=== PATIENT | female | born 1990 | race Caucasian/White ===

== ENCOUNTER → 2016-08-04 | Outpatient (CLI) | payer OTHER ==
--- NOTE | 2016-08-04 19:12 | US ---
EXAMINATION TYPE: US OB <= 14 wk fetus DATE OF EXAM: 08/04/2016 6:39 PM COMPARISON: NONE CLINICAL HISTORY: Z36 Confirm dates viability. ; LMP~April 2016 EXAM PERFORMED: Transabdominal (TA) EXAM MEASUREMENTS: GESTATIONAL AGE / DATING Physician Established: not established Dates by LMP: unsure Dates by First Scan: today Dates by Current Scan for: (12 weeks/0 days) EDC: 02/16/2017 MATERNAL ANATOMY Uterus: 13.9 x 9.0 x 8.0cm Right Ovary: 3.2 x 3.2 x 1.5cm Left Ovary: 2.6 x 1.8 x 1.2cm Post CDS / Adnexa: wnl Presence of free fluid: no Presence of corpus luteal cyst: not identified Presence of subchorionic bleed: inferior to gestational sac is anechoic area = 0.7 x 2.3 x 1.4cm GESTATION / SURVEY CRL: 5.3cm (12 weeks/0 days) Yolk Sac (normal less than 6mm): not seen Heart Rate: 154 bpm Rhythm: IUP: Viable IUP Date of LMP: unknown Beta HcG (if available): NA Single, live, IUP,12 weeks/0 days, EDC: 02/16/2017; HR 154bpm. IMPRESSION: The ultrasound gestational age is 12 weeks. I see no complicating process.
== END | disposition home or self-care (01) ==
LOC: RADUSMAIN 17:40
PROVIDERS: ATTEND Obstetrics & Gynecology
DX: Z36 Encounter for antenatal screening of mother (principal); Z3A.12 12 weeks gestation of pregnancy
CPT/HCPCS: 76801

== ENCOUNTER → 2016-12-10 | Outpatient (CLI) | payer OTHER ==
[2016-12-10 11:29] LABS: CH 26.5; HDW 3.78; Hypochromasia Slight; MCHC 33.4 g/dL (31.0-37.0); MCV 80.9 fL (80.0-100.0); Mean Platelet Volume 8.6; Poikilocytosis Slight; RDW 14.9 % (11.5-15.5); WBC 6.3 k/uL (3.8-10.6)
== END | disposition home or self-care (01) ==
LOC: LABWHC1 10:13
PROVIDERS: ATTEND Obstetrics & Gynecology
DX: Z34.82 Encounter for supervision of other normal pregnancy, second trimester (principal)
CPT/HCPCS: 36415; 82950; 85027

== ENCOUNTER → 2020-02-28 | Outpatient (CLI) | payer OTHER ==
--- NOTE | 2020-02-29 11:29 | US ---
EXAMINATION TYPE: Transabdominal DATE OF EXAM: 02/28/2020 4:41 PM COMPARISON: NONE CLINICAL HISTORY: Z36 confirm dates. EXAM PERFORMED: Transabdominal (TA) EXAM MEASUREMENTS: GESTATIONAL AGE / DATING Physician Established: Not yet established Dates by LMP: LMP unknown Dates by First Scan: No previous this is first scan Dates by Current Scan for: (11 weeks/5 days) EDC: 09/14/19 MATERNAL ANATOMY Uterus: 12.8 x 7.6 x 8.7cm Right Ovary: 2.8 x 1.9 x 1.9cm Left Ovary: 2.2 x 1.0 x 1.2cm Post CDS / Adnexa: wnl Presence of free fluid: no GESTATION / SURVEY CRL: 5.0cm (11 weeks/ 5 days) Yolk Sac (normal less than 6mm): not visualized Heart Rate: 167 bpm Rhythm: Normal IUP: Viable IUP Date of LMP: unknown IMPRESSION: 1. Single intrauterine gestation estimated at 11 weeks 5 days gestation based on crown-rump length. C ardiac activity measures 167 bpm was observed during the study.
== END | disposition home or self-care (01) ==
LOC: RADUSWWP 16:22
PROVIDERS: ATTEND Obstetrics & Gynecology
DX: Z36.9 Encounter for antenatal screening, unspecified (principal); Z3A.11 11 weeks gestation of pregnancy
CPT/HCPCS: 76801

== ENCOUNTER 2020-08-29 11:00 | Outpatient (CLI) | payer OTHER ==
--- NOTE | 2020-08-29 12:37 | US ---
EXAMINATION TYPE: US OB >= 14 wk fetus DATE OF EXAM: 08/29/2020 COMPARISON: None CLINICAL HISTORY: abnormal placenta/ grade 3 grade 3 placenta TECHNIQUE: Transabdominal (TA) GESTATIONAL AGE / DATING Physician Established: (37 weeks/6 days) EDC: 09/13/20 Dates by LMP: LMP unknown Dates by First Scan: (37 weeks/6 days) EDC: 09/13/20 Dates by Current Scan: (38 weeks/2 days) EDC: 09/10/20 SURVEY IUP: Single PLACENTA: Fundal/posterior - appears grade 3 PREVIA: No Previa ZACH: 11.0cm cm Normal CERVICAL LENGTH (transabdominal: norm > 3.0cm): 3.1 cm BIOMETRY PRESENTATION: Vertex LIE: Longitudinal BPD: 9.2 cm 37 weeks / 4 days HC: 33.4 cm 38 weeks / 2 days AC: 35.1 cm 39 weeks / 1 days FL: 7.5 cm 38 weeks / 1 days ESTIMATED WEIGHT IN GRAMS: 3524 grams ESTIMATED WEIGHT IN LBS/OZ: 7 lbs. 12 oz. WEIGHT PERCENTAGE BASED ON ESTABLISHED DATES: 78% HC/AC: 0.95 Normal FL/AC: 21% Normal HEART RATE: 167 bpm RHYTHM: Normal IMPRESSION: Single viable uterine
[2020-08-29 13:04] VITALS: BP 137/92; PULSE 101; RESP 16; TEMP 97.6
== END 2020-08-29 12:45 | disposition home or self-care (01) ==
LOC: FBPOP 11:00
PROVIDERS: ATTEND Obstetrics & Gynecology
DX: O43.109 Malformation of placenta, unspecified, unspecified trimester (principal); Z3A.38 38 weeks gestation of pregnancy
CPT/HCPCS: 59025; 76805

== ENCOUNTER → 2020-09-02 | Outpatient (CLI) | payer OTHER | DX: Z53.9 Procedure and treatment not carried out, unspecified reason (principal) ==

== ENCOUNTER 2020-09-05 13:30 | Outpatient (CLI) | payer OTHER | END 2020-09-05 14:36 | disposition home or self-care (01) | LOC: FBPOP 13:30 | PROVIDERS: ATTEND Obstetrics & Gynecology | DX: O98.513 Other viral diseases complicating pregnancy, third trimester (principal); U07.1 COVID-19; Z3A.38 38 weeks gestation of pregnancy | CPT/HCPCS: 59025 ==

== ENCOUNTER 2020-09-08 10:36 | Outpatient (CLI) | payer OTHER ==
[2020-09-08 11:34] VITALS: BP 120/81; PULSE 88; RESP 15; TEMP 96.2
--- NOTE | 2020-09-25 08:15 | P.MSEPDOC ---
Presenting Problems - Arrival Data Date of Arrival on Unit: 09/08/20 Time of Arrival on Unit: 10:38 Mode of Transport: Wheelchair - Complaint OB-Reason for Admission/Chief Complaint: NST Medical History - Information : 7 Para: 5 Term: 5 : 0 Abortions: Spontaneous or Elective: 1 Number of Living Children: 5 - Gestational Age Gestational Age by SELENA (wks/days): 39 Weeks and 2 Days Review of Systems - Review of Systems Constitutional: No problems Breast: No problems ENT: No problems Cardiovascular: No problems Respiratory: No problems Gastrointestinal: No problems Genitourinary: No problems Musculoskeletal: No problems Neurological: No problems Skin: No problems Vital Signs - Temperature Temperature: 96.2 F Temperature Source: Temporal Artery Scan - Pulse Pulse Oximetery Pulse Rate: 88 Pulse Assessment Method: Pulse Oximetry - Respirations Respiratory Rate: 15 Oxygen Delivery Method: Room Air O2 Sat by Pulse Oximetry: 97 - Blood Pressure Right Arm Blood Pressure: 120/81 Blood Pressure Mean: 94 Blood Pressure Source: Automatic Cuff Medical Screen Scoring (Pre) - Cervical Exam Dilation: Exam Deferred Effacement: Exam Deferred Membranes: Intact - Uterine Contractions Frequency: N/A Duration: N/A Intensity: N/A - Maternal Vital Signs Maternal Temperature: N/A Maternal Blood Pressure: N/A Signs of Preeclampsia: N/A Maternal Respirations: N/A - Maternal Trauma Maternal Trauma: N/A - Assessment - Baby A Baseline FHR: 130 Heart Rate - NICHD Category: Category I (Normal) = 0 NST: Reactive Position: N/A Station: N/A - Total Score - Baby A Total Score - Baby A: 0 - Total Score - Baby B Total Score - Baby B: 0 - Total Score - Baby C Total Score - Baby C: 0 - Level of Risk - Baby A Level of Risk - Baby A: Low (0-5) - Level of Risk - Baby B Level of Risk - Baby B: Low (0-5) - Level of Risk - Baby C Level of Risk - Baby C: Low (0-5) Physician Notification (Pre) - Physician Notified Physician Notified Date: 09/08/20 Physician Notified Time: 11:23 New Order Received: Yes Disposition - Disposition OB Disposition: Discharge to home Discharge Date: 09/08/20 Discharge Time: 11:30 I agree with the RN Medical Screening Exam: Yes Case reviewed; plan agreed upon as documented in EMR&OBIX.: Yes Diagnosis: OTHER MALFORMATION OF PLACENTA, THIRD TRIMESTER
== END 2020-09-08 11:30 | disposition home or self-care (01) ==
LOC: FBPOP 10:36
PROVIDERS: ATTEND Obstetrics & Gynecology
DX: O43.193 Other malformation of placenta, third trimester (principal); Z3A.39 39 weeks gestation of pregnancy
CPT/HCPCS: 59025; G0463; 99213

== ENCOUNTER 2020-09-09 09:54 | Outpatient (CLI) | payer OTHER ==
[2020-09-09] MEDS ORDERED: ONDANSETRON 4 MG/2 ML VIAL IVP STA (10:13)
[2020-09-09] MEDS ORDERED: SODIUM CHLORIDE 0.9% 1,000 ML IV ONE (10:13)
[2020-09-09] MEDS ORDERED: DEXTROSE 5%-0.9% NACL 1,000 ML IV SCH (11:15)
[2020-09-09 11:34] LABS: Amorphous Sediment,Urine Rare /hpf; Appearance,Urine Cloudy (Clear); Bacteria,Urine Occasional /hpf; Bilirubin,Urine 1+ (Negative); Blood,Urine Negative (Negative); Color,Urine Dark Brown; Glucose,Urine (UA) Negative (Negative); Granular Casts,Urine 6 /lpf (0); Hyaline Casts,Urine 6 /lpf (0-2); Ketones,Urine 1+ (Negative); Leukocyte Esterase,Urine Large (Negative); Mucus,Urine Many /hpf; Nitrite,Urine Negative (Negative); PH, Urine 6.5 (5.0-8.0); Protein,Urine 2+ (Negative); RBC,Urine 3 /hpf (0-5); Specific Gravity,Urine 1.037 (1.001-1.035); Squamous Epithelial Cell,Urine 29 /hpf (0-4); Urobilinogen,Urine >12.0 mg/dL (<2.0); WBC,Urine 55 /hpf (0-5)
[2020-09-09 11:43] LABS: Amphetamine Screen,Urine Not Detected (NotDetected); Barbiturate Screen,Urine Not Detected (NotDetected); Benzodiazepines Screen,Urine Not Detected (NotDetected); Cocaine Screen,Urine Not Detected (NotDetected); Methadone Screen, Urine Not Detected (NotDetected); Opiate Screen,Urine Not Detected (NotDetected); Oxycodone Screen, Urine Not Detected (NotDetected); Phencyclidine Screen,Urine Not Detected (NotDetected); Tricyclic Antidepressant,Urine Not Detected (NotDetected); Urn Cannabinoid Scrn Not Detected (NotDetected)
[2020-09-09 12:33] VITALS: BP 121/74; PULSE 112; RESP 16; TEMP 97
--- NOTE | 2020-09-25 08:10 | P.MSEPDOC ---
Presenting Problems - Arrival Data Date of Arrival on Unit: 09/09/20 Time of Arrival on Unit: 10:00 Mode of Transport: Wheelchair - Complaint OB-Reason for Admission/Chief Complaint: Acute Nausea/Vomiting Medical History - Information : 7 Para: 5 Term: 5 : 0 Abortions: Spontaneous or Elective: 1 Number of Living Children: 5 - Gestational Age Gestational Age by SELENA (wks/days): 39 Weeks and 3 Days Review of Systems - Review of Systems Constitutional: No problems Breast: No problems ENT: No problems Cardiovascular: No problems Respiratory: No problems Gastrointestinal: No problems Genitourinary: No problems Musculoskeletal: No problems Neurological: No problems Skin: No problems Vital Signs - Temperature Temperature: 97.0 F - Pulse Right Sitting Brachial Pulse Rate: 112 Pulse Assessment Method: Automatic Cuff - Respirations Respiratory Rate: 16 Oxygen Delivery Method: Room Air - Blood Pressure Right Arm Sitting Blood Pressure: 121/74 Blood Pressure Mean: 89 Blood Pressure Source: Automatic Cuff Medical Screen Scoring (Pre) - Cervical Exam Dilation: Exam Deferred Effacement: Exam Deferred Membranes: Intact - Uterine Contractions Frequency: N/A Duration: N/A Intensity: N/A - Maternal Vital Signs Maternal Temperature: N/A Maternal Blood Pressure: N/A Signs of Preeclampsia: N/A Maternal Respirations: N/A - Maternal Trauma Maternal Trauma: N/A - Assessment - Baby A Baseline FHR: 120 Heart Rate - NICHD Category: Category I (Normal) = 0 NST: Reactive Position: N/A Station: N/A - Total Score - Baby A Total Score - Baby A: 0 - Total Score - Baby B Total Score - Baby B: 0 - Total Score - Baby C Total Score - Baby C: 0 - Level of Risk - Baby A Level of Risk - Baby A: Low (0-5) - Level of Risk - Baby B Level of Risk - Baby B: Low (0-5) - Level of Risk - Baby C Level of Risk - Baby C: Low (0-5) Physician Notification (Pre) - Physician Notified Physician Notified Date: 09/09/20 Physician Notified Time: 10:00 New Order Received: Yes - Notification Comment Comment: iv fluids, zofran, ua, drug screen. Disposition - Disposition OB Disposition: Discharge to home Discharge Date: 09/09/20 Discharge Time: 12:06 I agree with the RN Medical Screening Exam: Yes Case reviewed; plan agreed upon as documented in EMR&OBIX.: Yes Diagnosis: LATE VOMITING OF
== END 2020-09-09 12:06 | disposition home or self-care (01) ==
LOC: FBPOP 09:54
PROVIDERS: ATTEND Obstetrics & Gynecology
DX: O21.2 Late vomiting of pregnancy (principal); Z3A.39 39 weeks gestation of pregnancy
CPT/HCPCS: 59025; 96361; 96365; 96375; 81001; 80306; G0463; J2405; 96374; 99214

== ENCOUNTER 2020-09-10 18:33 | Inpatient (IN) | payer OTHER ==
[2020-09-10] MEDS ORDERED: TERBUTALINE 1 MG/ML VIAL SQ PRN (18:50)
[2020-09-10] MEDS ORDERED: LIDOCAINE 0.5% (PF) 5 MG/ML (50 ML SDV) SQ PRN (18:50)
[2020-09-10] MEDS ORDERED: CARBOPROST TROMETHAMINE 250 MCG/ML 1 ML AMP IM PRN (18:50)
[2020-09-10] MEDS ORDERED: OXYTOCIN 10 UNIT/ML 1 ML VIAL IM PRN (18:50)
[2020-09-10] MEDS ORDERED: METHYLERGONOVINE 0.2 MG/ML 1 ML AMP IM PRN (18:50)
[2020-09-10] MEDS: LACTATED RINGERS 1,000 ML IV SCH ×2 (19:00→19:41)
[2020-09-10 19:21] LABS: Basophils % (A) 0 %; Eosinophils # (A) 0.1 k/uL (0-0.7); Eosinophils % (A) 1 %; HCT 36.8 % (34.0-46.0); HGB 12.5 gm/dL (11.4-16.0); Hypochromasia Slight; Lymphocytes # (A) 1.4 k/uL (1.0-4.8); Lymphocytes % (A) 14 %; MCH 26.6 pg (25.0-35.0); MCHC 33.8 g/dL (31.0-37.0); MCV 78.8 fL (80.0-100.0); Mean Platelet Volume 9.3; Monocytes # (A) 0.4 k/uL (0-1.0); Monocytes % (A) 4 %; Neutrophils # (A) 7.4 k/uL (1.3-7.7); Neutrophils % (A) 79 %; Platelet Count 358 k/uL (150-450); Poikilocytosis Slight; RBC 4.67 m/uL (3.80-5.40); RDW 15.8 % (11.5-15.5); WBC 9.3 k/uL (3.8-10.6)
[2020-09-10] MEDS ORDERED: SODIUM CHLORIDE 0.9% 100 ML BAG ONE (19:47)
[2020-09-10] MEDS ORDERED: ROPIVACAINE 5MG/ML 20ML VIAL ONE (19:47)
[2020-09-10] MEDS ORDERED: fentaNYL (PF) 50 MCG/ML 5 ML AMP ONE (19:47)
--- NOTE | 2020-09-10 19:52 | P.HPOB ---
History of Present Illness H&P Date: 09/10/20 Chief Complaint: Contractions. This patient is a 29-year-old 7 para 5 female estimated date of confinement 09/12/2020 estimated gestational age 39-5/7 weeks who presents to labor and delivery with complaints of contractions. It was here twice this weekend with similar complaints and found not to be in labor. Patient denies leaking fluid. Patient's cervix is now 6 cm dilated and thought to be in active labor. care is per Dr. Paz. care appears to be complicated by a borderline low ZACH at 35 weeks. Patient also apparently had COVID last month. Review of Systems Genitourinary: Reports Menstruation: Reports amenorrhea Past Medical History Past Medical History: Asthma Additional Past Medical History / Comment(s): childhood asthma. Patient is had 5 previous vaginal deliveries. History of Any Multi-Drug Resistant Organisms: None Reported Past Surgical History: No Surgical Hx Reported Additional Past Surgical History / Comment(s): d&c Past Anesthesia/Blood Transfusion Reactions: No Reported Reaction Past Psychological History: No Psychological Hx Reported Smoking Status: Former smoker Past Alcohol Use History: None Reported Past Drug Use History: None Reported - Past Family History Father Family Medical History: No Reported History Medications and Allergies Home Medications Medication Instructions Recorded Confirmed Type Acetaminophen Oral Susp [Tylenol] 160 mg PO Q4-6H 09/02/20 09/10/20 History Allergies Allergy/AdvReac Type Severity Reaction Status Date / Time No Known Allergies Allergy Verified 09/10/20 18:49 Exam Vital Signs Temp Pulse Resp BP Pulse Ox 09/10/20 18:48 97.6 F 103 H 16 136/78 96 Intake and Output 09/10/20 09/10/20 09/10/20 06:59 14:59 22:59 Other: Weight 92.986 kg - OBG Physical Exam Abdomen: bowel sounds normal, no diffuse tenderness, no bruit present, no guarding noted, no hepatomegaly, no splenomegaly, no mass Vulva: both: normal Vagina: normal moisture, no discharge Cervix: no lesion (Cervix is 6-7 cm dilated 80% effaced vertex. Artificial rupture membranes shows thick meconium fluid), no discharge Uterus: enlarged Results blood work shows she is O positive, rubella immune, RPR is nonreactive, hepatitis B was negative, group B strep was negative Result Diagrams: 09/10/20 19:00 Abnormal Lab Results - Last 24 Hours (Table) 09/10/20 Range/Units 19:00 MCV 78.8 L (80.0-100.0) fL RDW 15.8 H (11.5-15.5) % Assessment and Plan Assessment: This is a 29-year-old 7 para 5 female 39-5/7 weeks' gestation admitted to labor and delivery in active labor. Patient also has thick meconium-stained amniotic fluid. heart tones are category 1. Plan at this time is to allow epidurals the patient wishes. Anticipate vaginal delivery. We'll have the anesthesia present for delivery secondary to the thickness meconium-stained fluid. (1) 39 weeks gestation of Current Visit: Yes Status: Acute Code(s): Z3A.39 - 39 WEEKS GESTATION OF SNOMED Code(s): 72381502 (2) Normal labor Current Visit: Yes Status: Acute Code(s): O80 - ENCOUNTER FOR FULL-TERM UNCOMPLICATED DELIVERY; Z37.9 - OUTCOME OF DELIVERY, UNSPECIFIED SNOMED Code(s): 33130442 (3) Thick meconium stained amniotic fluid Current Visit: Yes Status: Acute Code(s): P96.83 - MECONIUM STAINING SNOMED Code(s): 834920888
[2020-09-10] MEDS: OXYTOCIN 30 UNITS/500 ML NS 30 UNIT in SALINE 1 500ML.BAG IV SCH ×2 (21:09→22:05)
[2020-09-10] MEDS ORDERED: SIMETHICONE 80 MG CHEWABLE PO PRN (21:20)
[2020-09-10] MEDS ORDERED: diphenhydrAMINE 50 MG/ML 1 ML VIAL IVP PRN (21:20)
[2020-09-10] MEDS ORDERED: ZOLPIDEM 5 MG TAB PO PRN (21:20)
[2020-09-10] MEDS ORDERED: BENZOCAINE/MENTHOL SPRAY 1 GM/SPRAY AEROSOL TOPICAL PRN (21:20)
[2020-09-10] MEDS ORDERED: IBUPROFEN 600 MG TAB PO PRN (21:20)
[2020-09-10] MEDS ORDERED: ACETAMINOPHEN TAB 325 MG TAB PO PRN (21:20)
[2020-09-10] MEDS ORDERED: LANOLIN CREAM 5 GM TUBE TOPICAL PRN (21:20)
[2020-09-10] MEDS ORDERED: bisacodyL 10 MG SUPP RECTAL PRN (21:20)
[2020-09-10] MEDS ORDERED: HYDROCORTISONE 2.5% RECTAL CREAM 30 GM TUBE RECTAL PRN (21:20)
[2020-09-10] MEDS ORDERED: diphenhydrAMINE 25 MG CAP PO PRN (21:20)
--- NOTE | 2020-09-10 21:25 | P.PROBDLV ---
Vaginal Delivery Note - . Vaginal Delivery Note: Normal spontaneous vaginal delivery viable male infant Apgars 9 and 9 delivery time is 2104 hrs. Please see dictated H&P for intimate details of this patient's admission. Brief summary this is a 29-year-old 7 para 5 female 39-4/7 weeks gestation who is admitted to labor and delivery with complaints of contractions found to be 6- 7 centimeters dilated. Patient's heart tones are category 1. Patient has artificial rupture membranes for thick meconium-stained fluid. She does request an epidural and this is placed. Patient gets good relief. Patient quickly progresses thereafter and gets to complete. Patient pushes the head to the perineum uncontrollably. Anesthesia is called for delivery. Mouth and nares are bulb suctioned. There is a nuchal cord which is easily reduced. Without any effort we have spontaneous delivery of the anterior and posterior shoulder and rest this 's body. This is a vigorous viable male Apgars 9 and 9. Infant has spontaneous respirations and good cry of note the infant is discolored green and brown from the meconium and has peeling of the skin. After delivery of the the umbilical cord is doubly clamped and cut is then handed to the nurses in attendance. The placenta is sp ontaneously delivered intact and it is meconium-stained as well. Speculum the perineum shows no laceration and no repairs required. we taken to the special care nursery for evaluation mother stable delivery room. All counts correct 3. There are no complications.
[2020-09-10 23:13] VITALS: RESP 16
[2020-09-11] MEDS ORDERED: diphenhydrAMINE ELIXIR 25 MG/10 ML CUP PO PRN (02:33)
[2020-09-11] MEDS ORDERED: ACETAMINOPHEN ORAL SUSP 160 MG/5 ML CUP PO PRN (02:33)
[2020-09-11] MEDS: IBUPROFEN ORAL SUSP 100 MG/5 ML CUP PO SCH ×3 (02:47→09:47)
[2020-09-11] MEDS ORDERED: SENNOSIDES-DOCUSATE SODIUM 1 EACH TAB PO SCH (08:00)
--- NOTE | 2020-09-11 08:24 | P.PNOBGVD ---
Subjective - Subjective Principal diagnosis: Post day 1 Interval history: Overall she is doing well. She is ambulating, voiding and tolerating her diet. She voices no complaints. Vital signs are stable and afebrile. Heart regular, lungs clear, extremities without pain. Abdomen is soft and uterus is firm. Lochia is reported light. We'll plan to continue care for now as baby is in special care nursery. Patient reports: Reports appetite normal, Reports voiding normally, Reports pain well controlled, Reports ambulating normally [place]: in NICU Objective - Latest Vital Signs Latest vital signs: Vital Signs Temp Pulse Resp BP Pulse Ox 09/11/20 04:00 98.3 F 89 16 116/70 97 09/10/20 23:22 98.3 F 95 16 132/74 09/10/20 22:52 93 16 133/85 09/10/20 22:22 88 18 127/67 09/10/20 22:07 90 14 127/82 09/10/20 21:52 90 18 124/67 09/10/20 21:37 91 14 145/84 09/10/20 21:22 97.5 F L 93 16 126/77 09/10/20 18:48 97.6 F 103 H 16 136/78 96 Intake and Output 09/10/20 09/11/20 09/11/20 22:59 06:59 14:59 Intake Total 311.733 Output Total 150 Balance 161.733 Intake: Intake, IV Titration 311.733 Amount Oxytocin 30 Units/500 ml 311.733 Ns 30 unit In Saline 1 500ml.bag @ Per Protocol IV .Q0M [facility] Rx#:[id number] Output: Estimated Blood Loss 150 Other: # Voids 0 1 Weight 92.986 kg - Exam Lungs: bilateral: normal Chest: Normal S1, Normal S2 Extremities: Present: normal Abdomen: Present: normal appearance, soft Uterus: Present: normal, firm - Labs Labs: Abnormal Lab Results - Last 24 Hours (Table) 09/10/20 Range/Units 19:00 MCV 78.8 L (80.0-100.0) fL RDW 15.8 H (11.5-15.5) %
[2020-09-11] MEDS: SENNA LEAF EXTRACT SYRUP 528 MG/15 ML CUP PO SCH ×2 (08:38→20:15)
[2020-09-11] MEDS: IBUPROFEN ORAL SUSP 2,400 MG/120 ML BOTTLE PO SCH (20:13)
[2020-09-11 23:15] VITALS: TEMP 98.2
[2020-09-12] MEDS: IBUPROFEN ORAL SUSP 2,400 MG/120 ML BOTTLE PO SCH ×2 (00:08→05:31)
--- NOTE | 2020-09-12 07:54 | P.DS ---
Providers Date of admission: 09/10/20 18:43 Expected date of discharge: 09/12/20 Attending physician: Christofer Paz Primary care physician: Stated None Hospital Course: Khadijah is doing very well day 2. She is ambulating, voiding and tolerating her diet. She voices no complaints and has no signs or symptoms from her COVID-19. We'll plan discharged home today. Her baby is still in special care nursery. Prescription for Motrin was 4 to her pharmacy. All the questions are answered for her at this time. Vital signs stable afebrile. Heart regular, lungs clear, extremities without pain. Abdomen soft and uterus is firm. Lochia is reported be light. Assessment day 2. Plan discharged home follow up with me in 6 weeks. Discharge instructions were thoroughly reviewed and all questions were answered for her prior to her discharge. Patient Condition at Discharge: Good Plan - Discharge Summary New Discharge Prescriptions: New Ibuprofen [Motrin] 600 mg PO Q6HR PRN #30 tab PRN Reason: Pain Ibuprofen [Motrin] 600 mg PO Q6HR PRN #30 tab PRN Reason: Pain No Action Acetaminophen Oral Susp [Tylenol] 160 mg PO Q4-6H Discharge Medication List Acetaminophen Oral Susp [Tylenol] 160 mg PO Q4-6H 09/02/20 [History] Ibuprofen [Motrin] 600 mg PO Q6HR PRN #30 tab 09/12/20 [Rx] Ibuprofen [Motrin] 600 mg PO Q6HR PRN #30 tab 09/12/20 [Rx] Follow up Appointment(s)/Referral(s): Christofer Paz DO [Doctor of Osteopathic Medicine] - 6 Weeks Activity/Diet/Wound Care/Special Instructions: No heavy lifting, limit stairs and driving, and pelvic rest. If any high temperatures, heavy bleeding, or severe pain call my office Discharge Disposition: HOME SELF-CARE
[2020-09-12 08:45] VITALS: BP 137/69; PULSE 87
== END 2020-09-12 09:00 | disposition home or self-care (01) | DRG 807 ==
LOC: FBPOP 18:33 → 4FBP 18:43
PROVIDERS: ADMIT Obstetrics & Gynecology; ATTEND Obstetrics & Gynecology
PROC: 10E0XZZ Delivery of Products of Conception, External Approach (ICD-10-PCS; principal; 2020-09-10)
DX: O69.81X0 Labor and delivery complicated by cord around neck, without compression, not applicable or unspecified (principal); Z37.0 Single live birth; O77.0 Labor and delivery complicated by meconium in amniotic fluid; J45.909 Unspecified asthma, uncomplicated; O99.52 Diseases of the respiratory system complicating childbirth; Z3A.39 39 weeks gestation of pregnancy; Z87.891 Personal history of nicotine dependence
CPT/HCPCS: 59025; 80306; 81001; 85025; 86850; 86900; 86901; 88307; 96361; 96365; 96375; 99213; 99214

== ENCOUNTER 2023-03-15 21:30 | Emergency (ER) | payer OTHER ==
[2023-03-15] MEDS ORDERED: SODIUM CHLORIDE 0.9% 1,000 ML IV ONE (22:20)
[2023-03-15 22:47] LABS: Basophils % (A) 0 %; Eosinophils # (A) 0.1 k/uL (0-0.7); Eosinophils % (A) 2 %; HCT 39.2 % (34.0-46.0); HGB 13.5 gm/dL (11.4-16.0); Lymphocytes # (A) 1.8 k/uL (1.0-4.8); Lymphocytes % (A) 24 %; MCH 28.3 pg (25.0-35.0); MCHC 34.5 g/dL (31.0-37.0); MCV 81.9 fL (80.0-100.0); Mean Platelet Volume 8.3; Monocytes # (A) 0.4 k/uL (0-1.0); Monocytes % (A) 5 %; Neutrophils % (A) 67 %; Platelet Count 226 k/uL (150-450); RBC 4.79 m/uL (3.80-5.40); RDW 13.5 % (11.5-15.5); WBC 7.4 k/uL (3.8-10.6)
[2023-03-15 23:11] LABS: ALT 15 U/L (4-34); AST 19 U/L (14-36); African American GFR (CKD) >90 (>60 ml/min/1.73 sqM); Albumin 4.5 g/dL (3.5-5.0); Alkaline Phosphatase 79 U/L (38-126); Anion Gap 11 mmol/L; Blood Urea Nitrogen 12 mg/dL (7-17); Calcium 9.8 mg/dL (8.4-10.2); Carbon Dioxide 22 mmol/L (22-30); Chloride 105 mmol/L (98-107); Glucose 97 mg/dL (74-99); Non-African American GFR(CKD) >90 (>60 ml/min/1.73 sqM); Potassium 3.7 mmol/L (3.5-5.1); Sodium 138 mmol/L (137-145); Total Bilirubin 0.4 mg/dL (0.2-1.3); Total Protein 7.7 g/dL (6.3-8.2)
--- NOTE | 2023-03-16 00:48 | US ---
EXAM: US , Transvaginal CLINICAL HISTORY: ITS.REASON US Reason: baginal bleeding in TECHNIQUE: Real-time transvaginal obstetrical ultrasound of the maternal pelvis and a first trimester with image documentation. Transvaginal imaging was used for better evaluation of the fetus and adnexa. COMPARISON: No previous studies. FINDINGS: Gestation: Single intrauterine gestational sac is noted. Single viable intrauterine gestation is noted corresponding to 6 weeks 1 day. Yolk sac is visualized. Probable cardiac flicker is noted. heart rate cannot be documented due to patient motion. Placenta/amniotic fluid: A 0.5 x 0.5 x 0.4 cm subchorionic bleed is noted adjacent to a gestational sac which should be closely followed. Uterus/cervix: The uterus measures 9.1 x 7.1 x 6.0 cm. No myometrial mass. Ovaries: Neither ovary is visualized. No mass. Free fluid: No free fluid. IMPRESSION: 1. Very early intrauterine gestation corresponding to 6 weeks 1 day with a yolk sac and a cardiac flicker. 2. Small subchorionic bleed is noted about the gestational sac which should be closely followed. 3. Neither ovary is visualized.
--- NOTE | 2023-03-16 01:47 | ED ---
General Adult HPI - General Chief complaint: Urogenital Stated complaint: , Vaginal Bleeding Time Seen by Provider: 03/15/23 21:39 Source: patient, RN notes reviewed Mode of arrival: ambulatory Limitations: no limitations - History of Present Illness Initial comments: 32-year-old female who is G8, P6, a 1 presents the emergency departm ent with a chief complaint of vaginal bleeding in . Patient is unsure of how far along she has. She reports her last menstrual periods was approximately January 2023. She does not have primary ELECTRICAL SUPERVISOR as her OB retired. She is complaining of light pink blood after wiping. She denies any dizziness, lightheadedness, vaginal pain or back pain. Denies injury or trauma. She reports that she did have a light amount of bleeding in previous pregnancies. - Related Data Home Medications Medication Instructions Recorded Confirmed Acetaminophen Oral Susp [Tylenol] 160 mg PO Q4-6H 09/02/20 09/10/20 Previous Rx's Medication Instructions Recorded Ibuprofen [Motrin] 600 mg PO Q6HR PRN #30 tab 09/12/20 Ibuprofen [Motrin] 600 mg PO Q6HR PRN #30 tab 09/12/20 Allergies Allergy/AdvReac Type Severity Reaction Status Date / Time No Known Allergies Allergy Verified 09/10/20 18:49 Review of Systems ROS Statement: Those systems with pertinent positive or pertinent negative responses have been documented in the HPI. ROS Other: All systems not noted in ROS Statement are negative. Past Medical History Past Medical History: Asthma Additional Past Medical History / Comment(s): childhood asthma. Patient is had 5 previous vaginal deliveries. History of Any Multi-Drug Resistant Organisms: None Reported Past Surgical History: No Surgical Hx Reported Additional Past Surgical History / Comment(s): d&c Past Anesthesia/Blood Transfusion Reactions: No Reported Reaction Past Psychological History: No Psychological Hx Reported Smoking Status: Former smoker Past Alcohol Use History: None Reported Past Drug Use History: None Reported - Past Family History Father Family Medical History: No Reported History General Exam - General Exam Comments Initial Comments: General: Alert, in no acute distress Head: atraumatic normocephalic. Eyes PERRL, EOMI intact, mucous membranes moist Respiratory: Lungs clear to auscultation bilaterally Cardiovascular: Heart rate regular rate and rhythm Abdominal: Soft without guarding or rebound Extremities: Normal inspection with full range of motion and normal capillary refill Neuroogic: alert and oriented 3, CN II-XII intact, able to ambulate with steady gait Skin: warm dry and intact with normal color Limitations: no limitations Course Vital Signs 03/15/23 03/16/23 21:33 02:33 Temperature 98.4 F 98.6 F Pulse Rate 78 68 Respiratory 16 18 Rate Blood Pressure 139/83 128/78 O2 Sat by Pulse 99 100 Oximetry - Reevaluation(s) Reevaluation #1: 03/16/23 01:47 Patient reevaluated. Patient educated on the importance of urinalysis. Medical Decision Making - Medical Decision Making Was pt. sent in by a medical professional or institution (, PA, DIGITAL COMMUNITY MANAGER, urgent care, hospital, or jail...) When possible be specific @ -[No] Did you speak to anyone other than the patient for history (EMS, parent, family, police, friend...)? What history was obtained from this source @ -[No] Did you review nursing and triage notes (agree or disagree)? Why? @ -[I reviewed and agree with nursing and triage notes] Were old charts reviewed (outside hosp., previous admission, EMS record, old EKG, old radiological studies, urgent care reports/EKG's, jail records)? Report findings @ -[No old charts were reviewed] Differential Diagnosis (chest pain, altered mental status, abdominal pain women, abdominal pain men, vaginal bleeding, weakness, fever, dyspnea, syncope, headache, dizziness, GI bleed, back pain, seizure, CVA, palpatations, mental health, musculoskeletal)? @ -[not applicable] EKG interpreted by me (3pts min.). @ -[As above] X-rays interpreted by me (1pt min.). @ -[None done] CT interpreted by me (1pt min.). @ -[None done] U/S interpreted by me (1pt. min.). @ -Yes What testing was considered but not performed or refused? (CT, X-rays, U/S, labs)? Why? @ -[None] What meds were considered but not given or refused? Why? @ -[None] Did you discuss the management of the patient with other professionals (professionals i.e. , PA, DIGITAL COMMUNITY MANAGER, lab, RT, psych nurse, social work therapist, facialist, teacher, operations officer trust department, bilingual case manager)? Give summary @ -[No] Was smoking cessation discussed for >3mins.? @ -[No] Was critical care preformed (if so, how long)? @ -[No] Were there social determinants of health that impacted care today? How? (Homeles sness, low income, unemployed, alcoholism, drug addiction, transportation, low edu. Level, literacy, decrease access to med. care, snf, rehab)? @ -[No] Was there de-escalation of care discussed even if they declined (Discuss DNR or withdrawal of care, Hospice)? DNR status @ -[No] What co-morbidities impacted this encounter? (DM, HTN, Smoking, COPD, CAD, Cancer, CVA, ARF, Chemo, Hep., AIDS, mental health diagnosis, sleep apnea, morbid obesity)? @ -[None] Was patient admitted / discharged? Hospital course, mention meds given and route, prescriptions, significant lab abnormalities, going to OR and other pertinent info. @ -Discharge. This is a 32-year-old female who presents the emergency department vaginal bleeding in . Patient had a thorough history and physical exam performed while in the ED. Physical exam essentially unremarkable. Heart rate regular rate and rhythm, lungs clear to auscultation bilaterally abdomen soft and nontender. Patient laboratory and imaging studies which revealed: Beta hCG 10,000 I interpreted the following: Pelvic US reveals early intrauterine gestation with small subchorionic hemorrhage recommend close follow up. Discussed results in detail with the patient verbalized understanding and all questions were addressed. Patient provided 1 L IV fluids. Patient discharged in stable condition with return parameters discussed. Patient provided local ELECTRICAL SUPERVISOR care. Case is discussed with Dr. Lopez [facility] who agrees with plan of care Undiagnosed new problem with uncertain prognosis? @ -[No] Drug Therapy requiring intensive monitoring for toxicity (Heparin, Nitro, Insulin, Cardizem)? @ -[No] Were any procedures done? @ -[No] Diagnosis/symptom? @ - Vaginal Bleeding in - Subchorionic hemorrhage Acute, or Chronic, or Acute on Chronic? @ -Acute Uncomplicated (without systemic symptoms) or Complicated (systemic symptoms)? @ -Uncomplicated Side effects of treatment? @ -[No] Exacerbation, Progression, or Severe Exacerbation? @ -[No] Poses a threat to life or bodily function? How? (Chest pain, [place], [place], pneumonia, PE, COPD, DKA, ARF, appy, cholecystitis, CVA, Diverticulitis, Homicidal, Suicidal, threat to staff... and all critical care pts) @ -Low likelihood - Lab Data Result diagrams: 03/15/23 22:19 03/15/23 22:19 Lab Results 03/15/23 03/15/23 03/15/23 Range/Units 22:19 22:19 22:19 WBC 7.4 (3.8-10.6) k/uL RBC 4.79 (3.80-5.40) m/uL Hgb 13.5 (11.4-16.0) gm/dL Hct 39.2 (34.0-46.0) % MCV 81.9 (80.0-100.0) fL MCH 28.3 (25.0-35.0) pg MCHC 34.5 (31.0-37.0) g/dL RDW 13.5 (11.5-15.5) % Plt Count 226 (150-450) k/uL MPV 8.3 Neutrophils % 67 % Lymphocytes % 24 % Monocytes % 5 % Eosinophils % 2 % Basophils % 0 % Neutrophils # 5.0 (1.3-7.7) k/uL Lymphocytes # 1.8 (1.0-4.8) k/uL Monocytes # 0.4 (0-1.0) k/uL Eosinophils # 0.1 (0-0.7) k/uL Basophils # 0.0 (0-0.2) k/uL Sodium 138 (137-145) mmol/L Potassium 3.7 (3.5-5.1) mmol/L Chloride 105 (98-107) mmol/L Carbon Dioxide 22 (22-30) mmol/L Anion Gap 11 mmol/L BUN 12 (7-17) mg/dL Creatinine 0.63 (0.52-1.04) mg/dL Est GFR (CKD-EPI)AfAm >90 (>60 ml/min/1.73 sqM) Est GFR (CKD-EPI)NonAf >90 (>60 ml/min/1.73 sqM) Glucose 97 (74-99) mg/dL Calcium 9.8 (8.4-10.2) mg/dL Total Bilirubin 0.4 (0.2-1.3) mg/dL AST 19 (14-36) U/L ALT 15 (4-34) U/L Alkaline Phosphatase 79 (38-126) U/L Total Protein 7.7 (6.3-8.2) g/dL Albumin 4.5 (3.5-5.0) g/dL HCG, Quant 35992.5 mIU/mL Urine Color Urine Appearance (Clear) Urine pH (5.0-8.0) Ur Specific [place] (1.001-1.035) Urine Protein (Negative) Urine Glucose (UA) (Negative) Urine Ketones (Negative) Urine Blood (Negative) Urine Nitrite (Negative) Urine Bilirubin (Negative) Urine Urobilinogen (<2.0) mg/dL Ur Leukocyte Esterase (Negative) Urine RBC (0-5) /hpf Urine WBC (0-5) /hpf Ur Squamous Epith Cells (0-4) /hpf Urine Bacteria (None) /hpf Urine Mucus (None) /hpf 03/16/23 Range/Units 01:45 WBC (3.8-10.6) k/uL RBC (3.80-5.40) m/uL Hgb (11.4-16.0) gm/dL Hct (34.0-46.0) % MCV (80.0-100.0) fL MCH (25.0-35.0) pg MCHC (31.0-37.0) g/dL RDW (11.5-15.5) % Plt Count (150-450) k/uL MPV Neutrophils % % Lymphocytes % % Monocytes % % Eosinophils % % Basophils % % Neutrophils # (1.3-7.7) k/uL Lymphocytes # (1.0-4.8) k/uL Monocytes # (0-1.0) k/uL Eosinophils # (0-0.7) k/uL Basophils # (0-0.2) k/uL Sodium (137-145) mmol/L Potassium (3.5-5.1) mmol/L Chloride (98-107) mmol/L Carbon Dioxide (22-30) mmol/L Anion Gap mmol/L BUN (7-17) mg/dL Creatinine (0.52-1.04) mg/dL Est GFR (CKD-EPI)AfAm (>60 ml/min/1.73 sqM) Est GFR (CKD-EPI)NonAf (>60 ml/min/1.73 sqM) Glucose (74-99) mg/dL Calcium (8.4-10.2) mg/dL Total Bilirubin (0.2-1.3) mg/dL AST (14-36) U/L ALT (4-34) U/L Alkaline Phosphatase (38-126) U/L Total Protein (6.3-8.2) g/dL Albumin (3.5-5.0) g/dL HCG, Quant mIU/mL Urine Color Colorless Urine Appearance Clear (Clear) Urine pH 6.5 (5.0-8.0) Ur Specific [place] 1.010 (1.001-1.035) Urine Protein Negative (Negative) Urine Glucose (UA) Negative (Negative) Urine Ketones Negative (Negative) Urine Blood Large H (Negative) Urine Nitrite Negative (Negative) Urine Bilirubin Negative (Negative) Urine Urobilinogen <2.0 (<2.0) mg/dL Ur Leukocyte Esterase Small H (Negative) Urine RBC 1 (0-5) /hpf Urine WBC 4 (0-5) /hpf Ur Squamous Epith Cells 1 (0-4) /hpf Urine Bacteria Rare H (None) /hpf Urine Mucus Rare H (None) /hpf Disposition Clinical Impression: , Subchorionic hemorrhage, Vaginal bleeding Disposition: HOME SELF-CARE Condition: Stable Instructions (If sedation given, give patient instructions): Subchorionic Hemorrhage (ED) Additional Instructions: These hormone drawn in 48 hours Please follow-up with ELECTRICAL SUPERVISOR within 1 week Please refer Emergency department if bleeding increases Is patient prescribed a controlled substance at d/c from ED?: No Referrals: None,Stated [Primary Care Provider] - 1-2 days Blanca Donis DO [Doctor of Osteopathic Medicine] - 1-2 days Time of Disposition: 01:49
[2023-03-16 02:14] LABS: Appearance,Urine Clear (Clear); Bacteria,Urine Rare /hpf; Bilirubin,Urine Negative (Negative); Blood,Urine Large (Negative); Color,Urine Colorless; Glucose,Urine (UA) Negative (Negative); Ketones,Urine Negative (Negative); Leukocyte Esterase,Urine Small (Negative); Mucus,Urine Rare /hpf; Nitrite,Urine Negative (Negative); PH, Urine 6.5 (5.0-8.0); Protein,Urine Negative (Negative); RBC,Urine 1 /hpf (0-5); Squamous Epithelial Cell,Urine 1 /hpf (0-4); Urobilinogen,Urine <2.0 mg/dL (<2.0); WBC,Urine 4 /hpf (0-5)
[2023-03-16 02:47] VITALS: BP 128/78; PULSE 68; RESP 18; TEMP 98.6
== END 2023-03-16 02:35 | disposition home or self-care (01) ==
LOC: EC 21:30
DX: O46.91 Antepartum hemorrhage, unspecified, first trimester (principal); O99.511 Diseases of the respiratory system complicating pregnancy, first trimester; J45.909 Unspecified asthma, uncomplicated; Z87.891 Personal history of nicotine dependence; Z3A.01 Less than 8 weeks gestation of pregnancy
CPT/HCPCS: 36415; 76801; 76817; 80053; 81001; 84702; 85025; 87086; 96360; 99284

== ENCOUNTER 2023-03-18 20:22 | Emergency (ER) | payer OTHER ==
--- NOTE | 2023-03-18 20:54 | ED ---
Female Urogenital HPI - General Chief complaint: Vaginal Bleeding Stated complaint: 6 weeks preg,bleeding Time Seen by Provider: 03/18/23 20:39 Source: patient Mode of arrival: ambulatory Limitations: no limitations - History of Present Illness Initial comments: 32-year-old female presenting to the ED with a chief complaint of vaginal bleeding. Patient is A1. Patient is approximately 6 weeks . Patient seen here for the same on 03/16/23. Was found to have some subchorionic hemorrhage on transvaginal ultrasound and advised to follow up with PLANT OPERATOR and was provided referral to Dr. Donis. Rates that their office is unable to get her in. Also reports that she has called "all over the place" and has been unable to get and appointment but reports that [facility] may be able to get her in next week. Reports since her last visit here, has had some increased vaginal bleeding. Additionally, is now having some lower abdominal cramping. No urinary symptoms. No changes in bowel habits. No chest pain or shortness of breath. No other complaints. Denies lightheadedness or dizziness. - Related Data Home Medications Medication Instructions Recorded Confirmed Acetaminophen Oral Susp [Tylenol] 160 mg PO Q4-6H 09/02/20 09/10/20 Previous Rx's Medication Instructions Recorded Ibuprofen [Motrin] 600 mg PO Q6HR PRN #30 tab 09/12/20 Ibuprofen [Motrin] 600 mg PO Q6HR PRN #30 tab 09/12/20 Allergies Allergy/AdvReac Type Severity Reaction Status Date / Time No Known Allergies Allergy Verified 09/10/20 18:49 Review of Systems ROS Statement: Those systems with pertinent positive or pertinent negative responses have been documented in the HPI. ROS Other: All systems not noted in ROS Statement are negative. Past Medical History Past Medical History: Asthma Additional Past Medical History / Comment(s): childhood asthma. Patient is had 5 previous vaginal deliveries. History of Any Multi-Drug Resistant Organisms: None Reported Past Surgical History: No Surgical Hx Reported Additional Past Surgical History / Comment(s): d&c Past Anesthesia/Blood Transfusion Reactions: No Reported Reaction Past Psychological History: No Psychological Hx Reported Smoking Status: Former smoker Past Alcohol Use History: None Reported Past Drug Use History: None Reported - Past Family History Father Family Medical History: No Reported History General Exam Limitations: no limitations General appearance: alert, in no apparent distress Neck exam: Present: normal inspection Respiratory exam: Present: normal lung sounds bilaterally Cardiovascular Exam: Present: regular rate, normal rhythm External exam: Present: normal external exam, other (Exam chaperoned by Audelia BEST. Cervical os is closed. Small clot in the vaginal vault however no active gross bleeding.) Neurological exam: Present: alert, oriented X3 Skin exam: Present: warm, dry Course Vital Signs 03/18/23 03/18/23 20:27 23:00 Temperature 98.2 F Pulse Rate 80 90 Respiratory 18 18 Rate Blood Pressure 147/89 141/77 O2 Sat by Pulse 98 100 Oximetry Medical Decision Making - Medical Decision Making Was pt. sent in by a medical professional or institution (, PA, JOURNEYMAN GLAZIER, urgent care, hospital, or halfway...) When possible be specific @ -No Did you speak to anyone other than the patient for history (EMS, parent, family, police, friend...)? What history was obtained from this source @ -No Did you review nursing and triage notes (agree or disagree)? Why? @ -I reviewed and agree with nursing and triage notes Were old charts reviewed (outside hosp., previous admission, EMS record, old EKG, old radiological studies, urgent care reports/EKG's, halfway records)? Report findings @ -Prior visit reviewed. Ultrasound on 03/16/23 showed very early intrauterine gestation corresponding to 6 weeks 1 day with a yolk sac and a cardiac flicker. Also additional small subchorionic bleed noted about the gestational sac which should be closely followed. Differential Diagnosis (chest pain, altered mental status, abdominal pain women, abdominal pain men, vaginal bleeding, weakness, fever, dyspnea, syncope, headache, dizziness, GI bleed, back pain, seizure, CVA, palpatations, mental health, musculoskeletal)? @ -Differential Vaginal Bleeding: Spontaneous , threatened , molar , ectopic , bloody show, incompetent cervix, abruptioplacenta, placenta previa, uterine rupture, dysfunctional uterine bleeding, hemorrhage, uterine fibroids, this is not meant to be an all-inclusive list. EKG interpreted by me (3pts min.). @ -As above X-rays interpreted by me (1pt min.). @ -None done CT interpreted by me (1pt min.). @ -None done U/S interpreted by me (1pt. min.). @ -Transvaginal ultrasound interpreted by me showing loss of intrauterine . What testing was considered but not performed or refused? (CT, X-rays, U/S, labs)? Why? @ -None What meds were considered but not given or refused? Why? @ -None Did you discuss the management of the patient with other professionals (professionals i.e. Dr., PA, JOURNEYMAN GLAZIER, lab, RT, psych nurse, case management social worker, transplant registered nurse, teacher, customer service officer, outsole caser)? Give summary @ -No Was smoking cessation discussed for >3mins.? @ -No Was critical care preformed (if so, how long)? @ -No Were there social determinants of health that impacted care today? How? (Homelessness, low income, unemployed, alcoholism, drug addiction, transportation, low edu. Level, literacy, decrease access to med. care, correction, rehab)? @ -No Was there de-escalation of care discussed even if they declined (Discuss DNR or withdrawal of care, Hospice)? DNR status @ -No What co-morbidities impacted this encounter? (DM, HTN, Smoking, COPD, CAD, Cancer, CVA, ARF, Chemo, Hep., AIDS, mental health diagnosis, sleep apnea, morbid obesity)? @ -None Was patient admitted / discharged? Hospital course, mention meds given and route, prescriptions, significant lab abnormalities, going to OR and other pertinent info. @ -Discharge 32-year-old female presenting to the ED with vaginal bleeding after previously being seen here 3 days with the same. At this time, had transvaginal ultrasound showing IUP estimated at 6 weeks 1 day. Since then, patient states that she has developed more vaginal bleeding and has started to experience lower abdominal cramping. Denied lightheadedness or dizziness. Laboratory studies reviewed. CBC unremarkable. Chemistry panel unremarkable. hCG 9965. Prior hCG 10,070.5. Pelvic exam showed no gross bleeding. At this time, patient is hemodynamically stable and will be discharged home. Discussed return precautions with patient who verbalizes agreement. Undiagnosed new problem with uncertain prognosis? @ -No Drug Therapy requiring intensive monitoring for toxicity (Heparin, Nitro, Insulin, Cardizem)? @ -No Were any procedures done? @ -No Diagnosis/symptom? @ -Spontaneous Acute, or Chronic, or Acute on Chronic? @ -Acute Uncomplicated (without systemic symptoms) or Complicated (systemic symptoms)? @ -Complicated Side effects of treatment? @ -No Exacerbation, Progression, or Severe Exacerbation? @ -No Poses a threat to life or bodily function? How? (Chest pain, [place], [place], pneumonia, PE, COPD, DKA, ARF, appy, cholecystitis, CVA, Diverticulitis, Homicidal, Suicidal, threat to staff... and all critical care pts) @ -Yes, loss of life. - Lab Data Result diagrams: 03/18/23 21:35 03/18/23 21:35 Lab Results 03/18/23 03/18/23 03/18/23 Range/Units 21:35 21:35 21:35 WBC 8.0 (3.8-10.6) k/uL RBC 4.64 (3.80-5.40) m/uL Hgb 13.1 (11.4-16.0) gm/dL Hct 38.0 (34.0-46.0) % MCV 81.9 (80.0-100.0) fL MCH 28.3 (25.0-35.0) pg MCHC 34.6 (31.0-37.0) g/dL RDW 13.3 (11.5-15.5) % Plt Count 226 (150-450) k/uL MPV 8.0 Neutrophils % 74 % Lymphocytes % 19 % Monocytes % 4 % Eosinophils % 1 % Basophils % 0 % Neutrophils # 6.0 (1.3-7.7) k/uL Lymphocytes # 1.6 (1.0-4.8) k/uL Monocytes # 0.3 (0-1.0) k/uL Eosinophils # 0.1 (0-0.7) k/uL Basophils # 0.0 (0-0.2) k/uL Sodium 140 (137-145) mmol/L Potassium 3.8 (3.5-5.1) mmol/L Chloride 107 (98-107) mmol/L Carbon Dioxide 19 L (22-30) mmol/L Anion Gap 14 mmol/L BUN 12 (7-17) mg/dL Creatinine 0.59 (0.52-1.04) mg/dL Est GFR (CKD-EPI)AfAm >90 (>60 ml/min/1.73 sqM) Est GFR (CKD-EPI)NonAf >90 (>60 ml/min/1.73 sqM) Glucose 107 H (74-99) mg/dL Calcium 9.9 (8.4-10.2) mg/dL Total Bilirubin 0.6 (0.2-1.3) mg/dL AST 24 (14-36) U/L ALT 16 (4-34) U/L Alkaline Phosphatase 71 (38-126) U/L Total Protein 7.7 (6.3-8.2) g/dL Albumin 4.5 (3.5-5.0) g/dL HCG, Quant 9965.5 mIU/mL Urine Color Dark Red Urine Appearance Bloody H (Clear) Urine RBC >182 H (0-5) /hpf Urine WBC 90 H (0-5) /hpf Urine Mucus Rare H (None) /hpf Blood Type Blood Type Recheck Bld Type Recheck Status Antibody Screen Spec Expiration Date 03/18/23 Range/Units 21:35 WBC (3.8-10.6) k/uL RBC (3.80-5.40) m/uL Hgb (11.4-16.0) gm/dL Hct (34.0-46.0) % MCV (80.0-100.0) fL MCH (25.0-35.0) pg MCHC (31.0-37.0) g/dL RDW (11.5-15.5) % Plt Count (150-450) k/uL MPV Neutrophils % % Lymphocytes % % Monocytes % % Eosinophils % % Basophils % % Neutrophils # (1.3-7.7) k/uL Lymphocytes # (1.0-4.8) k/uL Monocytes # (0-1.0) k/uL Eosinophils # (0-0.7) k/uL Basophils # (0-0.2) k/uL Sodium (137-145) mmol/L Potassium (3.5-5.1) mmol/L Chloride (98-107) mmol/L Carbon Dioxide (22-30) mmol/L Anion Gap mmol/L BUN (7-17) mg/dL Creatinine (0.52-1.04) mg/dL Est GFR (CKD-EPI)AfAm (>60 ml/min/1.73 sqM) Est GFR (CKD-EPI)NonAf (>60 ml/min/1.73 sqM) Glucose (74-99) mg/dL Calcium (8.4-10.2) mg/dL Total Bilirubin (0.2-1.3) mg/dL AST (14-36) U/L ALT (4-34) U/L Alkaline Phosphatase (38-126) U/L Total Protein (6.3-8.2) g/dL Albumin (3.5-5.0) g/dL HCG, Quant mIU/mL Urine Color Urine Appearance (Clear) Urine RBC (0-5) /hpf Urine WBC (0-5) /hpf Urine Mucus (None) /hpf Blood Type O Positive Blood Type Recheck O Pos Bld Type Recheck Status No Antibody Screen NEGATIVE Spec Expiration Date 03/21/20232334 Disposition Clinical Impression: Spontaneous Disposition: HOME SELF-CARE Condition: Good Instructions (If sedation given, give patient instructions): Miscarriage (ED) Additional Instructions: Please return to the Emergency Department if symptoms worsen or any other concerns. Is patient prescribed a controlled substance at d/c from ED?: No Referrals: None,Stated [Primary Care Provider] - 1-2 days Time of Disposition: 00:51
[2023-03-18 21:52] LABS: Basophils % (A) 0 %; Eosinophils # (A) 0.1 k/uL (0-0.7); Eosinophils % (A) 1 %; HGB 13.1 gm/dL (11.4-16.0); Lymphocytes # (A) 1.6 k/uL (1.0-4.8); Lymphocytes % (A) 19 %; MCH 28.3 pg (25.0-35.0); MCHC 34.6 g/dL (31.0-37.0); MCV 81.9 fL (80.0-100.0); Monocytes # (A) 0.3 k/uL (0-1.0); Monocytes % (A) 4 %; Neutrophils % (A) 74 %; Platelet Count 226 k/uL (150-450); RBC 4.64 m/uL (3.80-5.40); RDW 13.3 % (11.5-15.5)
[2023-03-18 21:57] LABS: Appearance,Urine Bloody (Clear); Color,Urine Dark Red
[2023-03-18] MEDS ORDERED: SODIUM CHLORIDE 0.9% 1,000 ML IV STA (22:01)
[2023-03-18 22:07] LABS: ALT 16 U/L (4-34); AST 24 U/L (14-36); African American GFR (CKD) >90 (>60 ml/min/1.73 sqM); Albumin 4.5 g/dL (3.5-5.0); Alkaline Phosphatase 71 U/L (38-126); Anion Gap 14 mmol/L; Blood Urea Nitrogen 12 mg/dL (7-17); Calcium 9.9 mg/dL (8.4-10.2); Carbon Dioxide 19 mmol/L (22-30); Chloride 107 mmol/L (98-107); Glucose 107 mg/dL (74-99); Mucus,Urine Rare /hpf; Non-African American GFR(CKD) >90 (>60 ml/min/1.73 sqM); Potassium 3.8 mmol/L (3.5-5.1); RBC,Urine >182 /hpf (0-5); Sodium 140 mmol/L (137-145); Total Bilirubin 0.6 mg/dL (0.2-1.3); Total Protein 7.7 g/dL (6.3-8.2); WBC,Urine 90 /hpf (0-5)
--- NOTE | 2023-03-19 00:25 | US ---
EXAM: US First Trimester , Transabdominal CLINICAL HISTORY: 6 wks preg. Hx subchorionic hemorrhage 03/16/23 TECHNIQUE: Real-time transabdominal obstetrical ultrasound of the maternal pelvis and a first trimester with image documentation. COMPARISON: Previous exam March 15, 2023. FINDINGS: An intrauterine gestational sac is no longer seen. There is a very small fluid collection near the upper aspect of the cervix with appears to represent a nabothian cyst. Both ovaries are identified and are within normal limits for size. No adnexal mass or free fluid. IMPRESSION: Interval loss of intrauterine gestation.
[2023-03-19 01:02] VITALS: BP 147/96; PULSE 82; RESP 16; TEMP 97.6
== END 2023-03-19 01:02 | disposition home or self-care (01) ==
LOC: EC 20:22
DX: O03.9 Complete or unspecified spontaneous abortion without complication (principal); O99.511 Diseases of the respiratory system complicating pregnancy, first trimester; J45.909 Unspecified asthma, uncomplicated; Z87.891 Personal history of nicotine dependence
CPT/HCPCS: 36415; 76801; 80053; 81001; 84702; 85025; 86850; 86900; 86901; 96360; 99285

== ENCOUNTER 2023-04-08 17:51 | Emergency (ER) | payer OTHER ==
--- NOTE | 2023-04-08 18:33 | ED ---
Female Urogenital HPI - General Source: patient Mode of arrival: ambulatory Limitations: no limitations <Danny Wilkes - Last Filed: 04/08/23 18:35> - General Source: RN notes reviewed <Liz Malone - Last Filed: 04/09/23 02:35> - General Chief complaint: Vaginal Bleeding Stated complaint: Vaginal Bleeding - History of Present Illness Initial comments: 32-year-old female presenting to the ED with a chief complaint of vaginal bleeding. Patient initially seen on 03/18/23 with concerns of vaginal bleeding. At that time found to have a miscarriage. Patient reports that vaginal bleeding stopped a week ago however today reports that she is now starting to have bleeding with clots again. No abdominal pain. (Danny Wilkes) Quick note reviewed: This is a 32-year-old female presents the emergency department with vaginal bleeding. Patient has been seen at this facility multiple times for the same. She reports that she was here on 03/19/2023 with concerns of vaginal bleeding. She reports reports that at that time she found out that she was having a possible miscarriage. She reports that she has had intermittent vaginal bleeding. She reports last week she did not have any however yesterday she had a white spotting and passed a few clots. She denies dizziness, lightheadedness, fatigue. Patient does not have a primary PREMISES TECHNICIAN follow-up with outpatient. (Liz Malone) - Related Data Home Medications Medication Instructions Recorded Confirmed Acetaminophen Oral Susp [Tylenol] 160 mg PO Q4-6H 09/02/20 09/10/20 Previous Rx's Medication Instructions Recorded Ibuprofen [Motrin] 600 mg PO Q6HR PRN #30 tab 09/12/20 Ibuprofen [Motrin] 600 mg PO Q6HR PRN #30 tab 09/12/20 Allergies Allergy/AdvReac Type Severity Reaction Status Date / Time No Known Allergies Allergy Verified 04/08/23 18:13 Review of Systems ROS Other: All systems not noted in ROS Statement are negative. <Danny Wilkes - Last Filed: 04/08/23 18:35> ROS Other: All systems not noted in ROS Statement are negative. <Liz Malone - Last Filed: 04/09/23 02:35> ROS Statement: Those systems with pertinent positive or pertinent negative responses have been documented in the HPI. Past Medical History Past Medical History: Asthma Additional Past Medical History / Comment(s): childhood asthma. Patient is had 5 previous vaginal deliveries. History of Any Multi-Drug Resistant Organisms: None Reported Past Surgical History: No Surgical Hx Reported Additional Past Surgical History / Comment(s): d&c Past Anesthesia/Blood Transfusion Reactions: No Reported Reaction Past Psychological History: No Psychological Hx Reported Smoking Status: Former smoker Past Alcohol Use History: None Reported Past Drug Use History: None Reported - Past Family History Father Family Medical History: No Reported History <Danny Wilkes - Last Filed: 04/08/23 18:35> General Exam Limitations: no limitations General appearance: alert, in no apparent distress Neck exam: Present: normal inspection Extremities exam: Present: normal inspection Back exam: Present: normal inspection Neurological exam: Present: alert, oriented X3 <Danny Wilkes - Last Filed: 04/08/23 18:35> <Liz Malone - Last Filed: 04/09/23 02:35> - General Exam Comments Initial Comments: General: Alert, in no acute distress Head: atraumatic normocephalic. Eyes PERRL, EOMI intact, mucous membranes moist Respiratory: Lungs clear to auscultation bilaterally Cardiovascular: Heart rate regular rate and rhythm Abdominal: Soft without guarding or rebound Extremities: Normal inspection with full range of motion and normal capillary r efill Neuroogic: alert and oriented 3, CN II-XII intact, able to ambulate with steady gait Skin: warm dry and intact with normal color (Liz Malone) Course <Liz Malone - Last Filed: 04/09/23 02:35> Vital Signs 04/08/23 18:10 Temperature 98.3 F Pulse Rate 76 Respiratory 20 Rate Blood Pressure 133/98 O2 Sat by Pulse 99 Oximetry - Reevaluation(s) Reevaluation #1: 04/09/23 02:18 Reevaluated and updated on US results. Agreeable with the plan for discharge home. (Liz Malone) Medical Decision Making <Danny Wilkes - Last Filed: 04/08/23 18:35> - Lab Data Result diagrams: 04/08/23 20:01 04/08/23 20:01 <Liz Malone - Last Filed: 04/09/23 02:35> - Medical Decision Making Quicknote portion performed. Signed Danny Wilkes PA-C (Danny Wilkes) Was pt. sent in by a medical professional or institution (CONNER Rosenbaum, MANAGER TRANSPORTATION PLANNING, urgent care, hospital, or intermediate...) When possible be specific @ -[No] Did you speak to anyone other than the patient for history (EMS, parent, family, police, friend...)? What history was obtained from this source @ -[No] Did you review nursing and triage notes (agree or disagree)? Why? @ -[I reviewed and agree with nursing and triage notes] Were old charts reviewed (outside hosp., previous admission, EMS record, old EKG, old radiological studies, urgent care reports/EKG's, intermediate records)? Report findings @ -[No old charts were reviewed] Differential Diagnosis (chest pain, altered mental status, abdominal pain women, abdominal pain men, vaginal bleeding, weakness, fever, dyspnea, syncope, headache, dizziness, GI bleed, back pain, seizure, CVA, palpatations, mental health, musculoskeletal)? @ -[not applicable] EKG interpreted by me (3pts min.). @ -[As above] X-rays interpreted by me (1pt min.). @ -[None done] CT interpreted by me (1pt min.). @ -[None done] U/S interpreted by me (1pt. min.). @ -Yes, reveals endometrial stripe is thickened measuring 1.7cm What testing was considered but not performed or refused? (CT, X-rays, U/S, labs)? Why? @ -[None] What meds were considered but not given or refused? Why? @ -[None] Did you discuss the management of the patient with other professionals (professionals i.e. CONNER Rosenbaum, MANAGER TRANSPORTATION PLANNING, lab, RT, psych nurse, social contact worker, tax services intern, teacher, bank operations officer, classification case manager)? Give summary @ -[No] Was smoking cessation discussed for >3mins.? @ -[No] Was critical care preformed (if so, how long)? @ -[No] Were there social determinants of health that impacted care today? How? (Homelessness, low income, unemployed, alcoholism, drug addiction, transportation, low edu. Level, literacy, decrease access to med. care, alf, rehab)? @ -[No] Was there de-escalation of care discussed even if they declined (Discuss DNR or withdrawal of care, Hospice)? DNR status @ -[No] What co-morbidities impacted this encounter? (DM, HTN, Smoking, COPD, CAD, Can cer, CVA, ARF, Chemo, Hep., AIDS, mental health diagnosis, sleep apnea, morbid obesity)? @ -[None] Was patient admitted / discharged? Hospital course, mention meds given and route, prescriptions, significant lab abnormalities, going to OR and other pertinent info. @ -Discharged. This is a 32 year old female who presents to the [facility] with vaginal bleeding. Patient had thorough history and exam performed. Vital signs stable. Physical exam is unremarkable. Heart rate reguar rate and rhythm, lungs clear to auscultation bilaterally, abdomen soft non- tender. Patient had labs which reveal: HCG 210. US does not reveal any IUP. I discussed the results in detail with the patient verbalized understanding all questions were addressed. Return precautions discussed at length. Discharged in stable condition with recommended close follow-up with PCP in 1-2 days. Case discussed with Dr. Vasquez, [facility] who agrees with plan of care. Undiagnosed new problem with uncertain prognosis? @ -[No] Drug Therapy requiring intensive monitoring for toxicity (Heparin, Nitro, Insulin, Cardizem)? @ -[No] Were any procedures done? @ -[No] Diagnosis/symptom? @ -Vaginal Bleeding Acute, or Chronic, or Acute on Chronic? @ -Acute Uncomplicated (without systemic symptoms) or Complicated (systemic symptoms)? @ -Uncomplicated Side effects of treatment? @ -[No] Exacerbation, Progression, or Severe Exacerbation? @ -[No] Poses a threat to life or bodily function? How? (Chest pain, USA, MT, pneumonia, PE, COPD, DKA, ARF, appy, cholecystitis, CVA, Diverticulitis, Homicidal, Suicidal, threat to staff... and all critical care pts) @ -Low likelihood (Liz Malone) - Lab Data Lab Results 04/08/23 04/08/23 04/08/23 Range/Units 20:01 20:01 20:21 WBC 8.0 (3.8-10.6) k/uL RBC 4.05 (3.80-5.40) m/uL Hgb 10.8 L (11.4-16.0) gm/dL Hct 32.8 L (34.0-46.0) % MCV 80.9 (80.0-100.0) fL MCH 26.7 (25.0-35.0) pg MCHC 33.0 (31.0-37.0) g/dL RDW 13.3 (11.5-15.5) % Plt Count 269 (150-450) k/uL MPV 7.9 Neutrophils % 81 % Lymphocytes % 14 % Monocytes % 3 % Eosinophils % 1 % Basophils % 0 % Neutrophils # 6.4 (1.3-7.7) k/uL Lymphocytes # 1.1 (1.0-4.8) k/uL Monocytes # 0.3 (0-1.0) k/uL Eosinophils # 0.1 (0-0.7) k/uL Basophils # 0.0 (0-0.2) k/uL Hypochromasia Slight Poikilocytosis Slight Sodium 138 (137-145) mmol/L Potassium 3.7 (3.5-5.1) mmol/L Chloride 104 (98-107) mmol/L Carbon Dioxide 21 L (22-30) mmol/L Anion Gap 13 mmol/L BUN 11 (7-17) mg/dL Creatinine 0.58 (0.52-1.04) mg/dL Est GFR (CKD-EPI)AfAm >90 (>60 ml/min/1.73 sqM) Est GFR (CKD-EPI)NonAf >90 (>60 ml/min/1.73 sqM) Glucose 99 (74-99) mg/dL Calcium 9.3 (8.4-10.2) mg/dL Total Bilirubin 0.5 (0.2-1.3) mg/dL AST 19 (14-36) U/L ALT 17 (4-34) U/L Alkaline Phosphatase 84 (38-126) U/L Total Protein 7.6 (6.3-8.2) g/dL Albumin 4.4 (3.5-5.0) g/dL HCG, Quant mIU/mL Urine Color Red Urine Appearance Cloudy H (Clear) Urine RBC >182 H (0-5) /hpf Urine WBC 15 H (0-5) /hpf Ur Squamous Epith Cells 1 (0-4) /hpf Urine Mucus Rare H (None) /hpf 04/08/23 Range/Units 22:06 WBC (3.8-10.6) k/uL RBC (3.80-5.40) m/uL Hgb (11.4-16.0) gm/dL Hct (34.0-46.0) % MCV (80.0-100.0) fL MCH (25.0-35.0) pg MCHC (31.0-37.0) g/dL RDW (11.5-15.5) % Plt Count (150-450) k/uL MPV Neutrophils % % Lymphocytes % % Monocytes % % Eosinophils % % Basophils % % Neutrophils # (1.3-7.7) k/uL Lymphocytes # (1.0-4.8) k/uL Monocytes # (0-1.0) k/uL Eosinophils # (0-0.7) k/uL Basophils # (0-0.2) k/uL Hypochromasia Poikilocytosis Sodium (137-145) mmol/L Potassium (3.5-5.1) mmol/L Chloride (98-107) mmol/L Carbon Dioxide (22-30) mmol/L Anion Gap mmol/L BUN (7-17) mg/dL Creatinine (0.52-1.04) mg/dL Est GFR (CKD-EPI)AfAm (>60 ml/min/1.73 sqM) Est GFR (CKD-EPI)NonAf (>60 ml/min/1.73 sqM) Glucose (74-99) mg/dL Calcium (8.4-10.2) mg/dL Total Bilirubin (0.2-1.3) mg/dL AST (14-36) U/L ALT (4-34) U/L Alkaline Phosphatase (38-126) U/L Total Protein (6.3-8.2) g/dL Albumin (3.5-5.0) g/dL HCG, Quant 210.2 mIU/mL Urine Color Urine Appearance (Clear) Urine RBC (0-5) /hpf Urine WBC (0-5) /hpf Ur Squamous Epith Cells (0-4) /hpf Urine Mucus (None) /hpf Disposition <Danny Wilkes - Last Filed: 04/08/23 18:35> Is patient prescribed a controlled substance at d/c from ED?: No Time of Disposition: 02:11 <Liz Malone - Last Filed: 04/09/23 02:35> Clinical Impression: Vaginal bleeding Disposition: HOME SELF-CARE Condition: Stable Additional Instructions: Follow-up with primary PREMISES TECHNICIAN in 1-2 days Please return to the nearest emergency department if worsening symptoms develop Referrals: None,Stated [Primary Care Provider] - 1-2 days Forms: Area PCPs
[2023-04-08 20:21] LABS: Basophils % (A) 0 %; Eosinophils # (A) 0.1 k/uL (0-0.7); Eosinophils % (A) 1 %; HCT 32.8 % (34.0-46.0); HGB 10.8 gm/dL (11.4-16.0); Hypochromasia Slight; Lymphocytes # (A) 1.1 k/uL (1.0-4.8); Lymphocytes % (A) 14 %; MCH 26.7 pg (25.0-35.0); MCV 80.9 fL (80.0-100.0); Mean Platelet Volume 7.9; Monocytes # (A) 0.3 k/uL (0-1.0); Monocytes % (A) 3 %; Neutrophils # (A) 6.4 k/uL (1.3-7.7); Neutrophils % (A) 81 %; Platelet Count 269 k/uL (150-450); Poikilocytosis Slight; RBC 4.05 m/uL (3.80-5.40); RDW 13.3 % (11.5-15.5)
[2023-04-08 20:39] LABS: ALT 17 U/L (4-34); AST 19 U/L (14-36); African American GFR (CKD) >90 (>60 ml/min/1.73 sqM); Albumin 4.4 g/dL (3.5-5.0); Alkaline Phosphatase 84 U/L (38-126); Anion Gap 13 mmol/L; Blood Urea Nitrogen 11 mg/dL (7-17); Calcium 9.3 mg/dL (8.4-10.2); Carbon Dioxide 21 mmol/L (22-30); Chloride 104 mmol/L (98-107); Glucose 99 mg/dL (74-99); Non-African American GFR(CKD) >90 (>60 ml/min/1.73 sqM); Potassium 3.7 mmol/L (3.5-5.1); Sodium 138 mmol/L (137-145); Total Bilirubin 0.5 mg/dL (0.2-1.3); Total Protein 7.6 g/dL (6.3-8.2)
[2023-04-08 21:25] LABS: Appearance,Urine Cloudy (Clear); Color,Urine Red; Mucus,Urine Rare /hpf; RBC,Urine >182 /hpf (0-5); Squamous Epithelial Cell,Urine 1 /hpf (0-4); WBC,Urine 15 /hpf (0-5)
--- NOTE | 2023-04-09 01:33 | US ---
EXAM: US Pelvis Transabdominal, Complete CLINICAL HISTORY: US Reason: vaginal bleeding TECHNIQUE: Real-time complete transabdominal pelvic ultrasound with image documentation. COMPARISON: March 15, 2023 FINDINGS: Uterus/cervix: The endometrial stripe is thickened measuring 1.7 cm. There is abnormal Doppler flow throughout the endometrial canal consistent with history of bleeding. The uterus measures 8.8 x 4.6 x 6 cm and is anteverted. No myometrial mass. Right ovary: The right ovary measures 3 x 1 x 2.5 x 2.7 cm. Doppler blood flow is present. There is a 3 x 1.9 x 2 cm simple cyst or follicle in the right ovary. Left ovary: The left ovary measures 3.3 x 4.4 x 3.3 cm. Doppler blood flow is present. There is a 3 x 2 x 2.7 cm simple cyst or follicle in the left ovary. Free fluid: No free fluid. Bladder: Unremarkable as visualized. Wall is normal thickness for degree of distention. IMPRESSION: The endometrial stripe is thickened measuring 1.7 cm. There is abnormal Doppler flow throughout the endometrial canal consistent with history of bleeding. The source is not clearly demonstrated.
[2023-04-09 02:47] VITALS: BP 123/86; PULSE 79; RESP 18; TEMP 98
== END 2023-04-09 02:35 | disposition home or self-care (01) ==
LOC: EC 17:51
DX: N93.9 Abnormal uterine and vaginal bleeding, unspecified (principal); J45.909 Unspecified asthma, uncomplicated; Z87.891 Personal history of nicotine dependence
CPT/HCPCS: 36415; 76856; 80053; 81001; 84702; 85025; 99284

== ENCOUNTER 2024-05-19 06:26 | Inpatient (IN) | payer OTHER ==
[2024-05-19] MEDS ORDERED: OXYTOCIN 10 UNIT/ML 1 ML VIAL IM PRN (06:38)
[2024-05-19] MEDS ORDERED: CARBOPROST TROMETHAMINE 250 MCG/ML 1 ML AMP IM PRN (06:38)
[2024-05-19] MEDS ORDERED: miSOPROStoL 200 MCG TAB RECTAL PRN (06:38)
[2024-05-19] MEDS ORDERED: TERBUTALINE 1 MG/ML VIAL SQ PRN (06:38)
[2024-05-19] MEDS ORDERED: LIDOCAINE 0.5% (PF) 5 MG/ML (50 ML SDV) SQ PRN (06:38)
[2024-05-19] MEDS ORDERED: miSOPROStoL 200 MCG TAB PO PRN (06:38)
[2024-05-19] MEDS ORDERED: TRANEXAMIC 1,000 MG/100ML-NACL 1,000 MG in EMPTY BAG 1 BAG IV PRN (06:38)
[2024-05-19 07:09] LABS: Anisocytosis Slight; Basophils % (A) 0 %; Eosinophils # (A) 0.1 k/uL (0-0.7); Eosinophils % (A) 1 %; HCT 29.5 % (34.0-46.0); HGB 9.6 gm/dL (11.4-16.0); Hypochromasia Moderate; Lymphocytes # (A) 1.4 k/uL (1.0-4.8); Lymphocytes % (A) 13 %; MCH 22.8 pg (25.0-35.0); MCHC 32.5 g/dL (31.0-37.0); MCV 70.2 fL (80.0-100.0); Mean Platelet Volume 7.3; Microcytosis Marked; Monocytes # (A) 0.4 k/uL (0-1.0); Monocytes % (A) 4 %; Neutrophils # (A) 8.4 k/uL (1.3-7.7); Neutrophils % (A) 81 %; Platelet Count 392 k/uL (150-450); Poikilocytosis Slight; RBC 4.21 m/uL (3.80-5.40); RDW 18.3 % (11.5-15.5); WBC 10.4 k/uL (3.8-10.6)
[2024-05-19 07:51] VITALS: RESP 16
[2024-05-19] MEDS: LACTATED RINGERS 500 ML IV SCH (08:08)
--- NOTE | 2024-05-19 08:23 | P.HPOB ---
History of Present Illness H&P Date: 05/19/24 Chief Complaint: IUP at 39-3/7 weeks, active labor 33-year-old 9 para 6-0-2-6 at 39-3/7 weeks that presents to labor and delivery with complaints of regular painful contractions. Patient was noted to be 6+ centimeters upon admission. Patient has been receiving routine care with Dr. Alfaro. Patient denies vaginal bleeding or loss of fluid at home. On blood work this patient has a blood type of O+, rubella status immune, RPR is nonreactive, hepatitis B surface engine is negative, HCV is negative, GBS negative 04/28 Review of Systems Constitutional: Denies chills, Denies fatigue, Denies fever Ears, nose, mouth and throat: Denies headache Cardiovascular: Reports leg edema Respiratory: Denies dyspnea Gastrointestinal: Denies nausea, Denies vomiting Genitourinary: Reports Past Medical History Past Medical History: Asthma Additional Past Medical History / Comment(s): childhood asthma History of Any Multi-Drug Resistant Organisms: None Reported Past Surgical History: No Surgical Hx Reported Additional Past Surgical History / Comment(s): d&c Past Anesthesia/Blood Transfusion Reactions: No Reported Reaction Past Psychological History: No Psychological Hx Reported Smoking Status: Never smoker Past Alcohol Use History: None Reported Past Drug Use History: None Reported - Past Family History Father Family Medical History: No Reported History Medications and Allergies Home Medications Medication Instructions Recorded Confirmed Type Amoxicillin 500 mg PO Q12HR 05/19/24 05/19/24 History Allergies Allergy/AdvReac Type Severity Reaction Status Date / Time No Known Allergies Allergy Verified 04/08/23 18:13 Exam Osteopathic Statement: *. No significant issues noted on an osteopathic structural exam other than those noted in the History and Physical/Consult. Vital Signs Temp Pulse Resp BP Pulse Ox 05/19/24 07:10 96.8 F L 110 H 16 144/81 100 05/19/24 06:27 96.8 F L 110 H 16 144/81 100 Intake and Output 05/18/24 05/19/24 05/19/24 22:59 06:59 14:59 Other: Weight 113.398 kg 113.398 kg Targeted physical exam is performed this date General Is a well-nourished well- developed female in no acute distress, breathing is nonlabored, abdomen is noted to be gravid, on cervical exam she is 8-9 amniotomy is performed clear fluid was obtained. heart tones are noted to be category 1 and she is heri every 5 minutes. Results Result Diagrams: 05/19/24 06:50 Abnormal Lab Results - Last 24 Hours (Table) 05/19/24 Range/Units 06:50 Hgb 9.6 L (11.4-16.0) gm/dL Hct 29.5 L (34.0-46.0) % MCV 70.2 L (80.0-100.0) fL MCH 22.8 L (25.0-35.0) pg RDW 18.3 H (11.5-15.5) % Neutrophils # 8.4 H (1.3-7.7) k/uL Assessment and Plan (1) Term Current Visit: Yes Status: Acute Code(s): Z34.90 - ENCNTR FOR SUPRVSN OF NORMAL , UNSP, UNSP TRIMESTER SNOMED Code(s): 99933136 (2) Active labor Current Visit: Yes Status: Acute Code(s): ZVB8073 - SNOMED Code(s): 947302974 Plan: 33-year-old 9 para 6-0-2-6 at 39-3/7 weeks that presents to labor and delivery in active labor. Patient is admitted to labor and delivery. Patient declines epidural. Anticipate spontaneous vaginal delivery.
[2024-05-19] MEDS: OXYTOCIN 30 UNITS/500 ML NS 30 UNIT in SALINE 1 500ML.BAG IV SCH (08:48)
[2024-05-19] MEDS ORDERED: LANOLIN CREAM 1 GM TUBE TOPICAL PRN (11:01)
[2024-05-19] MEDS ORDERED: ZOLPIDEM 5 MG TAB PO PRN (11:01)
[2024-05-19] MEDS ORDERED: diphenhydrAMINE 50 MG CAP PO PRN (11:01)
[2024-05-19] MEDS ORDERED: BENZOCAINE/MENTHOL SPRAY 1 GM/SPRAY AEROSOL TOPICAL PRN (11:01)
[2024-05-19] MEDS ORDERED: HYDROCORTISONE 2.5% RECTAL CREAM 30 GM TUBE RECTAL PRN (11:01)
[2024-05-19] MEDS ORDERED: diphenhydrAMINE 50 MG/ML 1 ML VIAL IVP PRN ×2 (11:01)
[2024-05-19] MEDS ORDERED: diphenhydrAMINE 25 MG CAP PO PRN (11:01)
[2024-05-19] MEDS ORDERED: SIMETHICONE 80 MG CHEWABLE PO PRN (11:01)
[2024-05-19] MEDS ORDERED: ACETAMINOPHEN ORAL SUSP 160 MG/5 ML CUP PO PRN (11:02)
[2024-05-19] MEDS: METHYLERGONOVINE 0.2 MG/ML 1 ML AMP IM PRN (11:10)
[2024-05-19] MEDS ORDERED: OXYTOCIN 30 UNITS/500 ML NS 30 UNIT in SALINE 1 500ML.BAG IV SCH (11:15)
[2024-05-19] MEDS: IBUPROFEN 800 MG TAB PO SCH (11:18)
[2024-05-19] MEDS: IBUPROFEN ORAL SUSP 2,400 MG/120 ML BOTTLE PO PRN (11:59)
[2024-05-19] MEDS ORDERED: ACETAMINOPHEN TAB 500 MG TAB PO SCH (12:00)
[2024-05-19] MEDS ORDERED: SENNOSIDES-DOCUSATE SODIUM 1 EACH TAB PO SCH (20:00)
[2024-05-19] MEDS ORDERED: SENNOSIDES 8.6 MG TAB PO SCH (21:00)
[2024-05-19] MEDS ORDERED: SENNA LEAF EXTRACT SYRUP 528 MG/15 ML CUP PO SCH (21:00)
[2024-05-20 04:44] VITALS: BP 132/81; PULSE 80; TEMP 98.1
--- NOTE | 2024-05-20 07:38 | P.PROBDLV ---
Vaginal Delivery Note - . Vaginal Delivery Note: 33-year-old M36 presents at 39 weeks and 3 days in active labor. Her cervix was 6 cm dilated upon admission she was heri every few minutes heart tones 140 with moderate variability and reactive. She was still 8 cm an hour later so Pitocin augmentation was started because she was heri about only 5-minute every 5 minutes. She progressed to complete at 1023. She pushed for in a viable male infant over intact perineum at 10:48 AM. Delivered OA, anterior shoulder delivered gentle downward guidance followed by posterior shoulder and rest of body. Nose and mouth bulb suction, clear come to cut, placement of abdomen. Apgars 9, 9, weight 4 ounces. Placenta delivered spontaneously, intact with three-vessel cord at 10:53 AM. Vagina, cervix, perineum were inspected. No lacerations noted. Estimated blood loss 300 mL. She did have some heavier bleeding so Methergine was given. Baby in stable condition.
--- NOTE | 2024-05-20 07:40 | P.DS ---
Providers Date of admission: 05/19/24 06:37 Expected date of discharge: 05/20/24 Attending physician: Miladys Alfaro Primary care physician: Stated None - Discharge Diagnosis(es) (1) Status post normal vaginal delivery Current Visit: Yes Status: Acute Hospital Course: Patient presented in active labor. she underwent a normal vaginal delivery. PP course is uneventful. Denies N/V, F/C, CP, SOB or calf pain. Pt will be discharged home PPD #1 in stable condition to follow up wiht me in 6 weeks. Plan - Discharge Summary New Discharge Prescriptions: New Ibuprofen Oral Susp [Motrin Oral Susp] 800 mg PO Q8H PRN #1200 ml PRN Reason: Fever And/Or Mild Pain No Action Amoxicillin 500 mg PO Q12HR Discharge Medication List Amoxicillin 500 mg PO Q12HR 05/19/24 [History] Ibuprofen Oral Susp [Motrin Oral Susp] 800 mg PO Q8H PRN #1200 ml 05/20/24 [Rx] Follow up Appointment(s)/Referral(s): Miladys Alfaro DO [Doctor of Osteopathic Medicine] - 07/05/24 1:15 pm Discharge Disposition: HOME SELF-CARE
[2024-05-20 09:52] LABS: Anisocytosis Slight; Basophils % (A) 0 %; Eosinophils # (A) 0.1 k/uL (0-0.7); Eosinophils % (A) 1 %; HCT 23.4 % (34.0-46.0); Hypochromasia Moderate; Lymphocytes # (A) 1.4 k/uL (1.0-4.8); Lymphocytes % (A) 13 %; MCH 22.6 pg (25.0-35.0); MCHC 31.8 g/dL (31.0-37.0); Mean Platelet Volume 7.2; Microcytosis Marked; Monocytes # (A) 0.3 k/uL (0-1.0); Monocytes % (A) 3 %; Neutrophils # (A) 8.7 k/uL (1.3-7.7); Neutrophils % (A) 82 %; Platelet Count 347 k/uL (150-450); Poikilocytosis Moderate; RDW 19.1 % (11.5-15.5); WBC 10.7 k/uL (3.8-10.6)
[2024-05-20 09:56] LABS: HGB 7.5 gm/dL (11.4-16.0)
--- NOTE | 2024-05-24 10:34 | CDI ---
Documentation Clarification Form Date: 05/24/2024 10:23:16 AM From: Ana Tolliver Phone: Admit Date: 05/19/2024 06:37:00 AM Patient Name: Khadijah Sy Visit Number: [id number] Discharge Date: 05/20/2024 03:39:00 PM ATTENTION: The Clinical Documentation Specialists (CDI) and [facility] Coding Staff appreciate your assistance in clarifying documentation. Please respond to the clarification below the line at the bottom and electronically sign. The CDI & [facility] Coding staff will review the response and follow-up if needed. Please note: Queries are made part of the Legal Health Record. If you have any questions, please contact the author of this message via ITS. Doctor/Provider: Miladys Alfaro, Your patient has a hemoglobin/hematocrit level of 7.5/23.4. Please clarify if there is an additional diagnosis and/or clinical significance related to these lab values. History/Risk Factors: Childhood asthma Clinical indicators: Placentadelivered spontaneously, intact with three-vessel cord at 10:53 AM.Vagina, cervix, perineum wereinspected. Nolacerationsnoted. Estimatedblood hfdr800 mL. She did have some heavierbleedingso Methergine was given. Treatment: Methergine IM, no transfusions Is there an additional diagnosis and/or clinical significance related to the above lab result/information: [x ] Acute blood loss anemia [ ] Post delivery vaginal bleeding [ ] No additional diagnosis/Not clinically significant [ ] Unable to determine [ ] Other, please specify MTDD
== END 2024-05-20 15:39 | disposition home or self-care (01) | DRG 542 ==
LOC: FBPOP 06:26 → 4FBP 06:37
PROVIDERS: ADMIT Obstetrics & Gynecology Obstetrics; ATTEND Obstetrics & Gynecology
PROC: 10E0XZZ Delivery of Products of Conception, External Approach (ICD-10-PCS; principal; 2024-05-19)
PROC: 0W3J3ZZ Control Bleeding in Pelvic Cavity, Percutaneous Approach (ICD-10-PCS; principal; 2024-05-19)
DX: O72.1 Other immediate postpartum hemorrhage (principal); Z37.0 Single live birth; Z3A.39 39 weeks gestation of pregnancy
CPT/HCPCS: 59025; 85025; 86850; 86900; 86901; 99213